=== PATIENT | female | born 1970 | race Caucasian/White ===

== ENCOUNTER 2017-09-29 02:21 | Emergency (ER) | payer OTHER ==
[~2017-09-29 02:21] MED LIST: NEXI10GR PO; ZOFR4TAB3 SL
[2017-09-29 02:28] VITALS: BP 143/84; PULSE 98; RESP 18; TEMP 98.3; O2SAT 99
[2017-09-29] MEDS ORDERED: ORPHENADRINE INJ 60 MG/2 ML AMP IM ONE (03:00)
[2017-09-29] MEDS ORDERED: ONDANSETRON ODT 4 MG TAB PO ONE (03:00)
[2017-09-29] MEDS ORDERED: KETOROLAC TROMETHAMINE 60 MG/2 ML (IM) VIAL IM ONE (03:00)
[2017-09-29] MEDS ORDERED: oxyCODONE/ACETAMINOPHEN 5 MG/325 MG TAB PO ONE (03:00)
--- NOTE | 2017-09-29 03:00 | PD ---
HPI Chief Complaint: Back/ Neck Pain or Injury Time Seen by Provider: 02:56 Travel History International Travel<30 days: No Contact w/Intl Traveler<30days: No Traveled to known affect area: No History of Present Illness HPI 47-year-old female presents for evaluation of lower back/left buttocks pain. She reports that in June she fell out of the chair. She reports that she sustained pain in her lower back/left buttock that occasionally radiates down the left leg at that time. She reports that she had an MRI of her lower back performed in August which revealed herniated disc at the L4-L5 and the sacral region. She has been following with a chiropractor for the past few months. She has been on various medications for symptom control. 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 Since then her pain has been worse. Pain is a sharp/spasming pain primarily in the left buttocks and occasionally radiates down the left leg. She was seen yesterday at the [facility] and prescribed Flexeril and prednisone and also given a dexamethasone shot. Her pain has persisted which prompted evaluation. She denies any bowel or bladder incontinence, saddle anesthesia, abdominal pain. Besides prednisone and Flexeril she is not currently using any other medication for symptom relief. She has no other complaints at this time. [facility] Past Medical History Thyroid Disease: Yes ?: Not Past Surgical History Surgical History: No Previous Surgery Social History Alcohol Use: No Tobacco Use: No Allergies-Medications (Allergen,Severity, Reaction): Coded Allergies: erythromycin base (Unverified Allergy, Mild, HIVES, 09/29/17) penicillin G (Unverified Allergy, Mild, HIVES, 09/29/17) Reported Meds & Prescriptions Reported Meds & Active Scripts Active Diclofenac Sodium DR (Diclofenac Sodium) 75 Mg Tabdr 75 Mg PO BID 10 Days Zofran ODT (Ondansetron HCl) 4 Mg Tab 4 Mg SL Q6 PRN FOR NAUSEA/VOMITING Reported Nexium packet (Esomeprazole Magnesium packet) 10 Mg Gra 10 Mg PO DAILY Review of Systems Except as stated in HPI: all other systems reviewed are Neg Physical Exam Narrative GENERAL: Well-developed well-nourished female who appears uncomfortable on initial examination. SKIN: Warm and dry. CARDIOVASCULAR: Regular rate and rhythm. No murmur appreciated. RESPIRATORY: No accessory muscle use. Clear to auscultation. Breath sounds equal bilaterally. GASTROINTESTINAL: Abdomen soft, non-tender, nondistended. Hepatic and splenic margins not palpable. MUSCULOSKELETAL: No obvious deformities. There is reproducible tenderness to palpation to the left buttocks and lumbosacral region. She has slight decreased range of motion of the left hip with flexion secondary to pain in her lower back/buttocks. 5 out of 5 muscle strength in the lower extremities bilaterally. Positive left straight leg raise. Distal pulses are intact. NEUROLOGICAL: Awake and alert. No obvious cranial nerve deficits. Motor grossly within normal limits. Normal speech. Data Data Last Documented VS Vital Signs Date Time Temp Pulse Resp B/P (MAP) Pulse Ox O2 Delivery O2 Flow Rate FiO2 09/29/17 04:20 85 20 149/86 (107) 100 Room Air 09/29/17 02:28 98.3 Orders Orders Ketorolac Inj (Toradol Inj) (09/29/17 03:00) Orphenadrine Inj (Norflex Inj) (09/29/17 03:00) Ondansetron Odt (Zofran Odt) (09/29/17 03:00) Oxycodone-Acetamin 5-325 Mg (Percocet (09/29/17 03:00) Morphine Inj (Morphine Inj) (09/29/17 04:00) Iv Access Insert/Monitor (09/29/17 03:58) Ed Discharge Order (09/29/17 05:01) MDM Medical Decision Making Medical Screen Exam Complete: Yes Emergency Medical Condition: Yes Medical Record Reviewed: Yes Differential Diagnosis Herniated mucous pulposis, muscle spasm, muscle strain, compression fracture Narrative Course 47-year-old female with recent MRI revealing herniated disks in the lumbar and sacral region presents with pain in her left buttocks/lower back that radiates down the left leg, worse over the past 2 days after lifting heavy objects at work. She has no symptoms to suggest a cauda equina syndrome. The plan is to treat her symptomatically-she will be given a dose of Percocet, Zofran as well as Toradol and Norflex injections here. Hard several doses of analgesics but eventually her pain significantly improved. At this point in time the plan is to discharge the patient with a short course of diclofenac as well as Lortab for breakthrough pain in conjunction with her recently prescribed muscle relaxants and low-dose prednisone. The patient has an appointment with her primary care physician this morning. Ideally she will be referred to physical therapy and possibly neurosurgery if symptoms persist. She is stable for discharge. Diagnosis Primary Impression: Lumbosacral radiculopathy Additional Instructions: Medication as needed. Take diclofenac with meals. Do not drive or drink alcohol and taking Lortab. Follow-up with your primary care physician as scheduled. Return for any emergent medical conditions. Med/Other Pt SpecificInfo: Prescription(s) given Scripts Hydrocodone-Acetaminophen (Hydrocodone-Acetaminophen) 5-325 mg Tab 1 TAB PO Q6H Y for PAIN, #15 TAB 0 Refills Prov: Heron Monsalve MD 09/29/[address] (Diclofenac Sodium DR) 75 Mg Tabdr 75 MG PO BID for 10 Days, #20 TAB 0 Refills Prov: Heron Monsalve MD 09/29/17 Disposition: 01 DISCHARGE HOME Condition: Stable Jose Ohara Sep 29, 2017 03:00
[2017-09-29] MEDS ORDERED: MORPHINE SULFATE 4 MG/ML INJ IV PUSH ONE (04:00)
[2017-09-29 04:20] VITALS: BP 149/86; PULSE 85; RESP 20; O2SAT 100
[2017-09-29] MEDS ORDERED: HYDR-3516 PO (04:59)
[2017-09-29] MEDS ORDERED: DICL75TA PO (04:59)
== END 2017-09-29 05:20 | disposition home or self-care (01) ==
LOC: NEPD 02:21
DX: M54.17 Radiculopathy, lumbosacral region (principal)
CPT/HCPCS: 96372; 96374; 99283; J1885; J2270; J2360